=== PATIENT | male | born 1950 | race Caucasian/White ===

== ENCOUNTER 2017-12-08 11:21 | Observation (INO) | payer BC ==
[2017-12-08 12:17] LABS: PLATELET COUNT 161 10^3/uL (150-400)
[2017-12-08] MEDS ORDERED: IOPAMIDOL (ISOVUE-300) 100 ML BTL ONE (13:10)
[2017-12-08] MEDS ORDERED: ACETAMINOPHEN 500 MG TAB ONE (14:11)
[2017-12-08] MEDS ORDERED: ACETAMINOPHEN 500 MG TAB PO ONE (14:12)
--- NOTE | 2017-12-08 15:50 | EDPHY ---
H & P Stated Complaint: fever, aches since stent removal x 2 days prior Time Seen by Provider: 12/08/17 11:44 HPI/ROS: Chief Complaint: Fever, rigors HPI: 67-year-old male with a history of renal calculi, had a ureteral stent removed 2 days ago. Since that time he has had fever and rigors. No flank pain. No abdominal pain. No nausea or vomiting. Has been taking Tylenol with some relief. 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 He states that he did discuss with his infectious disease doctor, Dr. Aguilar who recommended he have imaging done and further evaluation. There is a chest pain shortness of breath. Has had some decrease in his urinary stream with some mild urinary urgency. No frequency. ROS: 10 point Review of Systems is negative except as noted in the HPI. PMH: Kidney stones, hyperlipidemia Social History: No smoking Family History: non-contributory Physical Exam: Gen: Awake, Alert, No Distress HEENT: Nose: no rhinorrhea Eyes: PERRLA, EOMI Mouth: Moist mucosa Neck: Supple, no JVD Chest: nontender, lungs clear to auscultation Heart: S1, S2 normal, no murmur Abd: Soft, non-tender, no guarding Back: no CVA tenderness, no midline tenderness Ext: no edema, non-tender Skin: no rash Neuro: CN II-XII intact, Sensation grossly intact, Strength 5/5 in bilateral upper and lower extremities - Personal History Current Tetanus/Diphtheria Vaccine: Yes - Medical/Surgical History Hx Asthma: No Hx Chronic Respiratory Disease: No Hx Diabetes: No Hx Cardiac Disease: No Hx Renal Disease: No Hx Cirrhosis: No Hx Alcoholism: No Hx HIV/AIDS: No Hx Splenectomy or Spleen Trauma: No Other PMH: kidney stones, - Social History Smoking Status: Never smoked Constitutional: Initial Vital Signs Temperature (C) 37.3 C 12/08/17 11:38 Heart Rate 101 H 12/08/17 11:38 Respiratory Rate 18 12/08/17 11:38 Blood Pressure 126/68 H 12/08/17 11:38 O2 Sat (%) 96 12/08/17 11:38 O2 Delivery Mode Room Air Allergies/Adverse Reactions: promethazine [From Phenergan] Allergy (Verified 12/08/17 11:42) Home Medications: Medication Instructions Recorded Atorvastatin Calcium [Lipitor 20 20 mg PO DAILY 12/08/17 mg (*)] Ciprofloxacin [Cipro] 500 mg PO BID 12/08/17 Potassium Citrate [Urocit-K 10meq 20 meq PO BID 12/08/17 (*)] Temazepam [Restoril 15 MG (*)] 15 mg PO HSPRN PRN 12/08/17 Medical Decision Making - Diagnostics Imaging: Discussed imaging studies w/ call center rn Radiologist ED Course/Re-evaluation: Patient has leukocytosis. Urinalysis is negative. Will proceed with CT to evaluate for possible infectious source. At the patient's request I have discussed with Dr. Aguilar, infectious disease doctor with whom he has worked. She is concerned that given the mild hydro and the changes in the ureter on the CT scan at the patient might have a obstructed pyelonephritis. She is recommending admit for intravenous antibiotics, Rocephin , and urology consultation. 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 He does not wish to be admitted to that facility would like to stay in this hospital. He is requesting that I discussed with my urologist and hospitalist service here for further care. I have discussed with Dr. Temple, urology. He feels that the patient's symptoms are likely consistent with pyelonephritis that is not obstructed. He is happy to consult on the patient. He he is suggesting IV antibiotics to see how the patient progresses overnight and he will consult. I have discussed the patient with Dr. Perez, the [facility] hospitalist. She will admit the patient to her service for further care. I have ordered antibiotics. I have discussed with the patient. He is happy with this plan and continues to want to stay at our facility. - Data Points Laboratory Results: Laboratory Results 12/08/17 12:00 12/08/17 12:00 Medications Given: Acetaminophen (Tylenol) 500 - 1,000 mg PO Q6HRS PRN PRN Reason: Pain, Mild/Fever, Can Take PO Stop: 06/06/18 16:47 Last Admin: 12/09/17 08:49 Dose: 1,000 mg Atorvastatin Calcium (Lipitor) 20 mg PO DAILY [facility] Stop: 06/07/18 08:59 Last Admin: 12/09/17 08:45 Dose: Not Given Ceftriaxone Sodium/Dextrose (Rocephin 1 Gm (Premix)) 50 mls @ 100 mls/hr IV DAILY REJI PRN Reason: Protocol Stop: 01/08/18 08:59 Last Admin: 12/09/17 08:49 Dose: 50 mls Sodium Chloride (Ns) 1,000 mls @ 100 mls/hr IV CONT REJI Stop: 06/06/18 16:59 Last Admin: 12/09/17 06:27 Dose: 1,000 mls Magnesium Hydroxide (Milk Of Magnesia) 30 ml PO DAILY PRN; Protocol PRN Reason: Constipation Stop: 06/06/18 16:49 Last Admin: 12/09/17 08:56 Dose: 30 ml Polyethylene Glycol (Miralax) 17 gm PO DAILY PRN; Protocol PRN Reason: Constipation, patient prefers Stop: 06/06/18 16:49 Last Admin: 12/09/17 08:49 Dose: 17 gm Potassium Citrate (Urocit-K) 20 meq PO BID REJI Stop: 06/06/18 20:59 Last Admin: 12/09/17 08:45 Dose: Not Given Senna/Docusate Sodium (Senokot-S) 1 - 2 tab PO BID REJI PRN Reason: Protocol Stop: 06/06/18 20:59 Last Admin: 12/09/17 08:49 Dose: 2 tab Temazepam (Restoril) 15 mg PO HS PRN PRN Reason: INSOMNIA Stop: 06/06/18 16:49 Last Admin: 12/08/17 20:31 Dose: 15 mg Discontinued Medications Acetaminophen (Tylenol) 1,000 mg PO EDNOW ONE Stop: 12/08/17 14:13 Last Admin: 12/08/17 14:13 Dose: 1,000 mg Ceftriaxone Sodium/Dextrose (Rocephin 1 Gm (Premix)) 50 mls @ 100 mls/hr IV EDNOW ONE PRN Reason: Protocol Stop: 12/08/17 16:18 Last Admin: 12/08/17 16:03 Dose: 50 mls Departure - Departure Disposition: [facility] Inpatient Acute Clinical Impression: Pyelonephritis Condition: Good
[2017-12-08] MEDS ORDERED: OXYCODONE/APAP 5/325 TAB PO PRN (16:48)
[2017-12-08] MEDS ORDERED: ONDANSETRON DISINTEGRATING 4 MG TAB PO PRN (16:48)
[2017-12-08] MEDS ORDERED: HYDROmorphONE/DILAUDID 1 MG/ML INJ IVP PRN (16:48)
[2017-12-08] MEDS ORDERED: PROMETHAZINE HCL 25 MG/ML INJ IVP PRN (16:48)
[2017-12-08] MEDS ORDERED: ONDANSETRON 4 MG/2 ML VIAL IVP PRN (16:48)
[2017-12-08] MEDS ORDERED: LACTULOSE 20 GM/30 ML UDCUP PO PRN (16:50)
[2017-12-08] MEDS ORDERED: BISACODYL 10 MG SUPP PR PRN (16:50)
[2017-12-08] MEDS ORDERED: MAGNESIUM HYDROXIDE 30 ML UDCUP PO PRN (16:50)
[2017-12-08] MEDS ORDERED: TEMAZEPAM 15 MG CAP PO PRN (16:50)
--- NOTE | 2017-12-08 17:13 | PDGENHP ---
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 Patient had large obstructing left sided ureteral stone that is now s/p lithotripsy, stent placement and more recently stent removal on Saturday--the stent was in for 11 days prior to removal. He notes that he had issues when the stent was in this time in that he had hematuria essentially any time he walked and more discomfort than he has had in the past with stents. Since it was removed he has had chills and rigors, and since last night he has also had fever to 101. He has had some bladder pain while voiding but notes that he is not having any real dysuria otherwise. He has not had n/v. He denies any other sxs including cp, sob, cough. History Information - Allergies/Home Medication List Allergies/Adverse Reactions: promethazine [From Phenergan] Allergy (Verified 12/08/17 11:42) Home Medications: Atorvastatin Calcium [Lipitor 20 mg (*)] 20 mg PO DAILY 12/08/17 [Last Taken 12/18] Ciprofloxacin [Cipro] 500 mg PO BID 12/08/17 [Last Taken 12/08/17] Potassium Citrate [Urocit-K 10meq (*)] 20 meq PO BID 12/08/17 [Last Taken ] Temazepam [Restoril 15 MG (*)] 15 mg PO HSPRN PRN 12/08/17 [Last Taken 12/03/17] I have personally reviewed and updated: family history, medical history, social history, surgical history - Past Medical History hyperlipidemia Additional medical history: recurrent nephrolithiaiss - Surgical History Reports: hernia repair Additional surgical history: shoulder surgery. ankle surgery. cystoscopy. 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, Review of Systems Review of Systems: ROS: 10pt was reviewed & negative except for what was stated in HPI & below Physical Exam Physical Exam: Temp Pulse Resp BP Pulse Ox 37.4 C 76 16 112/69 94 12/08/17 16:47 12/08/17 16:47 12/08/17 16:47 12/08/17 16:47 12/08/17 16:47 Constitutional: no apparent distress, appears nourished Eyes: PERRL, anicteric sclera Ears, Nose, Mouth, Throat: moist mucous membranes Cardiovascular: regular rate and rhythym, no murmur, rub, or gallop, No edema Respiratory: no respiratory distress, no rales or rhonchi Gastrointestinal: normoactive bowel sounds, soft, non-tender abdomen Genitourinary: no bladder tenderness Skin: warm, normal color Musculoskeletal: no muscle tenderness Neurologic: AAOx3 Psychiatric: interacting appropriately, not anxious, not encephalopathic Lab Data & Imaging Review 12/08/17 12:00 12/08/17 12:00 WBC 15.29 10^3/uL (3.80-9.50) H 12/08/17 12:00 RBC 4.67 10^6/uL (4.40-6.38) 12/08/17 12:00 Hgb 14.4 g/dL (13.7-17.5) 12/08/17 12:00 Hct 43.9 % (40.0-51.0) 12/08/17 12:00 MCV 94.0 fL (81.5-99.8) 12/08/17 12:00 MCH 30.8 pg (27.9-34.1) 12/08/17 12:00 MCHC 32.8 g/dL (32.4-36.7) 12/08/17 12:00 RDW 12.0 % (11.5-15.2) 12/08/17 12:00 Plt Count 161 10^3/uL (150-400) 12/08/17 12:00 MPV 9.1 fL (8.7-11.7) 12/08/17 12:00 Neut % (Auto) 89.7 % (39.3-74.2) H 12/08/17 12:00 Lymph % (Auto) 5.5 % (15.0-45.0) L 12/08/17 12:00 [place] % (Auto) 3.9 % (4.5-13.0) L 12/08/17 12:00 Eos % (Auto) 0.1 % (0.6-7.6) L 12/08/17 12:00 Baso % (Auto) 0.3 % (0.3-1.7) 12/08/17 12:00 Nucleat RBC Rel Count 0.0 % (0.0-0.2) 12/08/17 12:00 Absolute Neuts (auto) 13.73 10^3/uL (1.70-6.50) H 12/08/17 12:00 Absolute Lymphs (auto) 0.84 10^3/uL (1.00-3.00) L 12/08/17 12:00 Absolute Monos (auto) 0.60 10^3/uL (0.30-0.80) 12/08/17 12:00 Absolute Eos (auto) 0.01 10^3/uL (0.03-0.40) L 12/08/17 12:00 Absolute Basos (auto) 0.04 10^3/uL (0.02-0.10) 12/08/17 12:00 Absolute Nucleated RBC 0.00 10^3/uL (0-0.01) 12/08/17 12:00 Immature Gran % 0.5 % (0.0-1.1) 12/08/17 12:00 Immature Gran # 0.07 10^3/uL (0.00-0.10) 12/08/17 12:00 VBG Lactic Acid 1.3 mmol/L (0.7-2.1) 12/08/17 12:25 Sodium 137 mEq/L (135-145) 12/08/17 12:00 Potassium 3.8 mEq/L (3.3-5.0) 12/08/17 12:00 Chloride 102 mEq/L (97-110) 12/08/17 12:00 Carbon Dioxide 28 mEq/l (22-31) 12/08/17 12:00 Anion Gap 7 mEq/L (8-16) L 12/08/17 12:00 BUN 15 mg/dL (7-23) 12/08/17 12:00 Creatinine 1.0 mg/dL (0.7-1.3) 12/08/17 12:00 Estimated GFR > 60 12/08/17 12:00 Glucose 97 mg/dL (70-100) 12/08/17 12:00 Calcium 9.4 mg/dL (8.5-10.4) 12/08/17 12:00 Urine Color YELLOW 12/08/17 12:25 Urine Appearance CLEAR 12/08/17 12:25 Urine pH 6.0 (5.0-7.5) 12/08/17 12:25 Ur Specific Forrest 1.016 (1.002-1.030) 12/08/17 12:25 Urine Protein NEGATIVE (NEGATIVE) 12/08/17 12:25 Urine Ketones NEGATIVE (NEGATIVE) 12/08/17 12:25 Urine Blood NEGATIVE (NEGATIVE) 12/08/17 12:25 Urine Nitrate NEGATIVE (NEGATIVE) 12/08/17 12:25 Urine Bilirubin NEGATIVE (NEGATIVE) 12/08/17 12:25 Urine Urobilinogen NEGATIVE EU (0.2-1.0) 12/08/17 12:25 Ur Leukocyte Esterase NEGATIVE (NEGATIVE) 12/08/17 12:25 Urine Glucose NEGATIVE (NEGATIVE) 12/08/17 12:25 Visualized and Interpreted Chest x-ray results: Yes Chest X-Ray results: no infiltrate Visualized and Interpreted imaging results: Yes Interpretation: abd CT: non obstructive left nephrolithiasis, heterogenous prostate Assessment & Plan Assessment: Pyelonephritis (Acute) 67 yo M with hx of recurrent nephrolithiasis sp recent lithotripsy and ureteral stent placement and removal presenting with sepsis 2/2 pyelonephritis # sepsis: meeting SIRS criteria with fever, leukocytosis and presumed urinary source given recent instrumentation and urinary obstruction. Has been on ciprofloxacin at home so cultures may not be helpful as next # pyelonephritis: in setting of recent ureteral stent removal for obstructive nephrolithiasis and on cipro prior to presentation with normal UA but still suspicion for urinary source of infection. Patients ID doctor, Dr. Guerrero from [facility] recommending admission and further w/u. Imaging without abscess or e/o ongoing obstruction. Will ask our ID docs to weigh in in am. CTX for now. # nephrolithiasis: s/p cystoscopy/lithotripsy/stent placement and removal as above. Patietn is followed by [facility] urologist Dr. Richardson. Dr. Bee has been consulted and will see patient in am, however unlikely that further surgical intervention needed at this time with no obstruction noted on imaging # HLD: continue statin # observation status, will likely require < 48 hours stay for eval/mgmt of above Patient new to my care. Old records reviewed including [facility] Care plan reviewed with ER doctor as above.
[2017-12-08] MEDS: SENNOSIDES/DOCUSATE SODIUM TAB PO SCH (20:30)
[2017-12-08] MEDS: POLYETHYLENE GLYCOL 3350 17 GM PKT PO PRN (20:30)
[2017-12-08] MEDS: NS 1,000 ML IV SCH (20:35)
[2017-12-08] MEDS: ACETAMINOPHEN 500 MG TAB PO PRN (20:45)
[2017-12-08] MEDS: POTASSIUM CITRATE 10 MEQ TAB PO SCH (21:55)
[2017-12-09 05:12] LABS: PLATELET COUNT 143 10^3/uL (150-400)
[2017-12-09] MEDS: NS 1,000 ML IV SCH (06:27)
[2017-12-09] MEDS: POTASSIUM CITRATE 10 MEQ TAB PO SCH (08:45)
[2017-12-09] MEDS: POLYETHYLENE GLYCOL 3350 17 GM PKT PO PRN (08:49)
[2017-12-09] MEDS: SENNOSIDES/DOCUSATE SODIUM TAB PO SCH (08:49)
[2017-12-09] MEDS: ACETAMINOPHEN 500 MG TAB PO PRN (08:49)
[2017-12-09 09:00] VITALS: BP 121/77
[2017-12-09] MEDS ORDERED: ATORVASTATIN CALCIUM 20 MG TAB PO SCH (09:00)
--- NOTE | 2017-12-09 10:45 | ASMTCASEMG ---
Living Arrangements What is your living Answers: With Spouse arrangement? Who do you live with? Type Of Residence What kind of residence do Answers: House you live in? Discharge Plan Comments Coordination Status Comments Notes: Pt is a 67 y/o man admitted for fever and rigors. Pt is septic. ID is consulting. 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 Needs are TBD at this time. CM to follow. Plan: TBD Date Signed: 12/09/2017 10:45 AM Electronically Signed By:KLEBER Solomon
--- NOTE | 2017-12-09 13:43 | PDDCSUM ---
Discharge Summary Discharge Summary: DISCHARGE SUMMARY FOLLOW-UP ITEMS: 1. Urine culture and blood culture pending at time discharge, to be followed up by the patient's primary urologist DATE OF ADMISSION: 12/08/2017 DATE OF DISCHARGE: 12/09/2017 DISCHARGE DIAGNOSES: 1. Possible acute pyelonephritis 2. Chronic nephrolithiasis 3. Chronic BPH CONSULTATIONS: None PROCEDURES / IMAGING: CT of the abdomen demonstrating left-sided nephrolithiasis, thickened left- sided ureteral without any obstruction, enlarged prostate CHIEF COMPLAINT: Acute rigors and fever SUBJECTIVE: Patient is feeling well at time discharge, he has been afebrile overnight and has had no subsequent rigors PHYSICAL EXAM ON DISCHARGE: Systolic blood pressure 100-120, heart rate 80, afebrile overnight, satting on room air, last fever was 38.5 degrees C at 3:00 p.m. On day prior, no CVA tenderness on left or right, alert awake oriented x3, no apparent distress LABS ON DISCHARGE: White blood cell count 9800, creatinine 1, lactic normal, urinalysis normal without any blood HOSPITAL COURSE BY PROBLEM: The patient presented with acute rigors, fever, leukocytosis possibly secondary to left-sided pyelo nephritis in the setting of recent stone lithotripsy extraction stent placement and subsequent stent removal. After this extensive urologic workup performed in the recent past, is certainly possible the patient may have experienced an ascending urinary stream infection. He had recently been initiated on ciprofloxacin, which would explain why his urinalysis on presentation was unremarkable. After receiving IV ceftriaxone, the patient's leukocytosis significantly improved, and he was notably afebrile. I would consider the patient ruled out for sepsis as the patient did not demonstrate any evidence of end-organ failure autonomic dysregulation during this hospitalization. On the day of discharge, the patient was feeling well, he was asymptomatic, and he was requesting discharge with outpatient IV ceftriaxone to be arranged by his primary outpatient urologist. I offered the patient infectious disease consultation prior to discharge, the patient declined, indicating that if he experienced any recurrence of symptoms, he would notify his primary urologist and local infectious disease provider. DISCHARGE MEDICATIONS: Please see official discharge medication reconciliation sheet in chart , continue home medications with the addition of IV ceftriaxone 1 g once daily x7 subsequent days, to be ordered by his primary outpatient urologist. DISCHARGE INSTRUCTIONS: Please follow up for daily IV ceftriaxone, discontinue ciprofloxacin, and follow up with your outpatient neurologist.
--- NOTE | 2017-12-10 07:53 | GCON ---
[f rep st] CONSULTATION DATE OF CONSULTATION: 12/09/2017 REFERRING PHYSICIAN: Arnold Perez MD REASON FOR CONSULTATION: Followup pyelonephritis, kidney stone surgery. HISTORY OF PRESENT ILLNESS: The patient is a 67-year-old male who recently had ureteroscopy and ston e surgery in [place]. The ureteral stent was removed last week, but the patient had continued to giraldo ve rigors, fever and feeling poorly. He came to the [facility] Emergency Department and was f ound have an elevated white count. CT scan was consistent with left pyelonephritis. There was only minimal hydronephrosis but thickening of the entire ureter to the bladder consistent with stent infla mmation. Due to ongoing fevers despite Cipro, he was brought into the hospital for further treatment . PAST MEDICAL HISTORY: Significant for stones. He has also had shoulder ankle surgery. He is a nons moker. REVIEW OF SYSTEMS: Is as above and otherwise negative. EXAM: GENERAL: The patient is in no acute distress. LUNGS: He has symmetric chest wall excursions , unlabored respirations. HEART: Rate is regular. ABDOMEN: Soft. EXTREMITIES: He has no peripher al edema. BACK: He has no CVA tenderness. IMPRESSION: Left pyelonephritis without obstruction. PLAN: Pending cultures. He will be initially treated with IV antibiotics and converted to a non-radha nolone antibiotic. Unless he demonstrates deterioration, no further urologic intervention is indicat ed. /[id number]/MODL
--- NOTE | 2017-12-10 16:24 | ASMTCMCOM ---
CM Note CM Note Notes: Pt d/c yesterday w/out any needs. Date Signed: 12/10/2017 04:24 PM Electronically Signed By:KLEBER Solomon
--- NOTE | 2017-12-10 16:25 | ASMTLACE ---
LACE Length of stay for Answers: 1 day current admission Acuity / Level of Answers: No Care: Did the patient have an inpatient admission? Comorbidities - select Answers: Other Notes: HLD all that apply # of Emergency department Answers: 1-2 visits in the last 6 months Score: 3 Date Signed: 12/10/2017 04:25 PM Electronically Signed By:KLEBER Solomon
== END 2017-12-09 11:38 | disposition home or self-care (01) ==
LOC: F3E 16:51
PROVIDERS: ADMIT Internal Medicine; ATTEND Internal Medicine
DX: N10 Acute pyelonephritis (principal); N20.0 Calculus of kidney; N40.1 Benign prostatic hyperplasia with lower urinary tract symptoms; E78.5 Hyperlipidemia, unspecified; Z87.442 Personal history of urinary calculi
CPT/HCPCS: 71046; 74177; 96374; 99285; G0378; J0696; Q9967